=== PATIENT | male | born 1970 | race Caucasian/White ===

== ENCOUNTER 2019-07-07 11:19 | Inpatient (IN) | payer OTHER ==
--- NOTE | 2019-07-07 12:38 | Event Note ---
ED Screening Note ED Screening Note: pt presents for headache chest pain generalized weakness dizziness like the room is spinning three weeks ago occasional vomiting no diarrhea no sob PMHx none no daily meds no allergies to meds This initial assessment/diagnostic orders/clinical plan/treatment(s) is/are subject to change based on patients health status, clinical progression and re- assessment by fellow clinical providers in the ED. Further treatment and workup at subsequent clinical providers discretion. Patient/guardian urged not to elope from the ED as their condition may be serious if not clinically assessed and managed. Initial orders include: tana quigley
--- NOTE | 2019-07-07 14:14 | XRay Report ---
CHEST 2 VIEWS INDICATION: CP. COMPARISON: 08/18/2015 FINDINGS: Support devices: None. Heart: Within normal limits. Lungs/Pleura: No acute air space or interstitial disease. No significant pleural effusion. IMPRESSION: No acute findings. Signer Name: Marco Antonio Ceballos MD Signed: 07/07/2019 2:10 PM Workstation Name: [id number]
[2019-07-07 14:59] LABS: Mean Corpuscular HGB Conc 35 % (32-34); Mean Corpuscular Volume 97 fl (84-94); Platelet Count 139 K/mm3 (140-440); Red Blood Count 1.34 M/mm3 (3.65-5.03)
[2019-07-07 15:03] LABS: INR 1.11 (0.87-1.13)
[2019-07-07 15:04] LABS: Partial Thromboplastin Time 22.6 Sec. (24.2-36.6)
[2019-07-07 15:12] LABS: Alanine Aminotransferase 38 units/L (7-56); Albumin 4.4 g/dL (3.9-5); BUN/Creatinine Ratio 20; Blood Urea Nitrogen 14 mg/dL (9-20); Calcium 9.7 mg/dL (8.4-10.2); Hemolysis Index 2
[2019-07-07 15:19] LABS: Hemoglobin 4.5 gm/dl (11.8-15.2); Red Cell Distribution Width 33.9 % (13.2-15.2)
[2019-07-07] MEDS ORDERED: SODIUM CHLORIDE 0.9% 1000 ML 1,000 ML IV ONE (15:39)
[2019-07-07] MEDS ORDERED: SODIUM CHLORIDE 0.9% 500 ML 500 ML IV ONE (15:40)
[2019-07-07] MEDS ORDERED: ONDANSETRON 4 MG/2 ML INJ IV ONE (15:40)
[2019-07-07 15:58] LABS: Eosinophils % (Manual) 0 % (0.0-4.3); Hypochromasia 1+; Total Cells Counted 100
[2019-07-07 15:59] LABS: Target Cells 1+; Tear Drop Cells 1+
[2019-07-07 16:00] LABS: Platelet Estimate Consistent w Auto; Spherocytes Few
--- NOTE | 2019-07-07 16:31 | Emergency Department Report ---
ED Dizziness HPI - General Chief Complaint: Dizziness Stated Complaint: HEADACHE/DIZZY/STOMACH PAIN Time Seen by Provider: 07/07/19 12:36 Source: patient Mode of arrival: Ambulatory Limitations: No Limitations - History of Present Illness Initial Comments: 49-year-old [place] male without any known past medical or surgical history presents to the hospital complaining of lightheadedness, vomiting, and pain. Patient states he's had a global headache daily since April. The last 3 weeks he's had intermittent vomiting primarily with meals but is able to tolerate liquids. Patient endorses weight loss during this period. He also has any shortness of breath, chest pain, or weakness, focal numbness, blurry vision, and abdominal cramps. Patient denies fever, melena, hematochezia, hematemesis, alcohol abuse, or recent travel. Patient does speak British however his primary language is Chadian and Creole. He denies a past medical history of anemia or requiring a blood transfusion in the past. - Related Data Home Medications Medication Instructions Recorded Confirmed Last Taken No Known Home Medications [No 07/07/19 07/07/19 Unknown Reported Home Medications] Allergies Allergy/AdvReac Type Severity Reaction Status Date / Time No Known Allergies Allergy Unverified 08/18/15 16:13 ED Review of Systems ROS: Stated complaint: HEADACHE/DIZZY/STOMACH PAIN Other details as noted in HPI Comment: All other systems reviewed and negative ED Past Medical Hx - Past Medical History Previous Medical History?: No - Surgical History Past Surgical History?: No - Social History Smoking Status: Former Smoker Substance Use Type: None - Medications Home Medications: Home Medications Medication Instructions Recorded Confirmed Last Taken Type No Known Home Medications [No 07/07/19 07/07/19 Unknown History Reported Home Medications] ED Physical Exam - General Limitations: No Limitations - Other Other exam information: General: No limitations, patient is alert in no acute distress Head exam: Atraumatic, normocephalic Eyes exam: Normal appearance, extraocular movements intact, pupils equal and reactive to light ENT: Moist mucous membrane Neck exam: Normal inspection, full range of motion Respiratory exam: Clear to auscultation bilateral, no wheezes, rales, crackles Cardiovascular: Regular rate and rhythm Abdomen: Soft, nondistended, and nontender, with normal bowel sounds, no rebound, or guarding Rectal: Guaiac-negative brown stool Extremity: No deformity Back: Normal Inspection, no CVA tenderness Neurologic: Alert, oriented x3, speech clear, no gross motor or sensory deficit, finger nose finger function intact Psychiatric: Normal mood, affect Skin: No rash ED Course Vital Signs 07/07/19 07/07/19 07/07/19 15:19 19:20 19:40 Temperature 97.6 F 98.5 F 98.5 F Pulse Rate 110 H 101 H 105 H Respiratory 20 16 16 Rate Blood Pressure 155/74 Blood Pressure 150/75 145/68 [Left] O2 Sat by Pulse 100 98 99 Oximetry 07/07/19 07/07/19 07/07/19 19:55 20:10 20:40 Temperature 98.2 F 98.5 F 98.5 F Pulse Rate 91 H 96 H 92 H Respiratory 16 18 18 Rate Blood Pressure 136/68 136/76 122/70 Blood Pressure [Left] O2 Sat by Pulse 98 98 96 Oximetry ED Medical Decision Making - Lab Data Result diagrams: 07/07/19 16:00 07/07/19 14:25 Lab Results 07/07/19 07/07/19 07/07/19 Range/Units 14:25 14:25 14:25 WBC 8.9 (4.5-11.0) K/mm3 RBC 1.34 L (3.65-5.03) M/mm3 Hgb 4.5 L* (11.8-15.2) gm/dl Hct 13.0 L* (35.5-45.6) % MCV 97 H (84-94) fl MCH 34 H (28-32) pg MCHC 35 H (32-34) % RDW 33.9 H (13.2-15.2) % Plt Count 139 L (140-440) K/mm3 Add Manual Diff Complete Total Counted 100 Seg Neuts % (Manual) 55.0 (40.0-70.0) % Band Neutrophils % 0 % Lymphocytes % (Manual) 43.0 H (13.4-35.0) % Reactive Lymphs % (Man) 0 % Monocytes % (Manual) 1.0 (0.0-7.3) % Eosinophils % (Manual) 0 (0.0-4.3) % Basophils % (Manual) 1.0 (0.0-1.8) % Metamyelocytes % 0 % Myelocytes % 0 % Promyelocytes % 0 % Blast Cells % 0 % Nucleated RBC % 1.0 H (0.0-0.9) % Seg Neutrophils # Man 4.9 (1.8-7.7) K/mm3 Band Neutrophils # 0.0 K/mm3 Lymphocytes # (Manual) 3.8 (1.2-5.4) K/mm3 Abs React Lymphs (Man) 0.0 K/mm3 Monocytes # (Manual) 0.1 (0.0-0.8) K/mm3 Eosinophils # (Manual) 0.0 (0.0-0.4) K/mm3 Basophils # (Manual) 0.1 (0.0-0.1) K/mm3 Metamyelocytes # 0.0 K/mm3 Myelocytes # 0.0 K/mm3 Promyelocytes # 0.0 K/mm3 Blast Cells # 0.0 K/mm3 WBC Morphology Not Reportable Hypersegmented Neuts Not Reportable Hyposegmented Neuts Not Reportable Hypogranular Neuts Not Reportable Smudge Cells Not Reportable Toxic Granulation Not Reportable Toxic Vacuolation Not Reportable Dohle Bodies Not Reportable Pelger-Huet Anomaly Not Reportable Any Rods Not Reportable Platelet Estimate Consistent w auto Clumped Platelets Not Reportable Plt Clumps, EDTA Not Reportable Large Platelets Not Reportable Giant Platelets Not Reportable Platelet Satelliting Not Reportable Plt Morphology Comment Not Reportable RBC Morphology Not Reportable Dimorphic RBCs Not Reportable Polychromasia Few Hypochromasia 1+ Poikilocytosis Not Reportable Anisocytosis Not Reportable Microcytosis Not Reportable Macrocytosis Not Reportable Spherocytes Few Pappenheimer Bodies Not Reportable Sickle Cells Not Reportable Target Cells 1+ Tear Drop Cells 1+ Ovalocytes Not Reportable Helmet Cells Not Reportable Melton-Pescadero Bodies Not Reportable Gurnee Rings Not Reportable Solon Cells Not Reportable Bite Cells Not Reportable Crenated Cell Not Reportable Elliptocytes 1+ Acanthocytes (Spur) Not Reportable Rouleaux Not Reportable Hemoglobin C Crystals Not Reportable Schistocytes Not Reportable Malaria parasites Not Reportable Henri Bodies Not Reportable Hem Pathologist Commnt No PT 14.4 (12.2-14.9) Sec. INR 1.11 (0.87-1.13) APTT 22.6 L (24.2-36.6) Sec. Sodium 140 (137-145) mmol/L Potassium 4.0 (3.6-5.0) mmol/L Chloride 99.9 (98-107) mmol/L Carbon Dioxide 25 (22-30) mmol/L Anion Gap 19 mmol/L BUN 14 (9-20) mg/dL Creatinine 0.7 L (0.8-1.5) mg/dL Estimated GFR > 60 ml/min BUN/Creatinine Ratio 20 % Glucose 110 H (75-100) mg/dL Calcium 9.7 (8.4-10.2) mg/dL Phosphorus 4.40 (2.5-4.5) mg/dL Magnesium 1.80 (1.7-2.3) mg/dL Total Bilirubin 1.30 H (0.1-1.2) mg/dL AST 76 H (5-40) units/L ALT 38 (7-56) units/L Alkaline Phosphatase 62 (35-129) units/L Troponin T < 0.010 (0.00-0.029) ng/mL Total Protein 7.4 (6.3-8.2) g/dL Albumin 4.4 (3.9-5) g/dL Albumin/Globulin Ratio 1.5 % Lipase (13-60) units/L TSH (0.270-4.200) mlU/mL Blood Type Antibody Screen Crossmatch 07/07/19 07/07/19 07/07/19 Range/Units 14:25 16:00 16:00 WBC 8.5 (4.5-11.0) K/mm3 RBC 1.41 L (3.65-5.03) M/mm3 Hgb 4.7 L* (11.8-15.2) gm/dl Hct 13.9 L* (35.5-45.6) % MCV 98 H (84-94) fl MCH 33 H (28-32) pg MCHC 34 (32-34) % RDW 34.6 H (13.2-15.2) % Plt Count 131 L (140-440) K/mm3 Add Manual Diff Complete Total Counted 100 Seg Neuts % (Manual) 43.0 (40.0-70.0) % Band Neutrophils % 0 % Lymphocytes % (Manual) 53.0 H (13.4-35.0) % Reactive Lymphs % (Man) 0 % Monocytes % (Manual) 3.0 (0.0-7.3) % Eosinophils % (Manual) 1.0 (0.0-4.3) % Basophils % (Manual) 0 (0.0-1.8) % Metamyelocytes % 0 % Myelocytes % 0 % Promyelocytes % 0 % Blast Cells % 0 % Nucleated RBC % Not Reportable (0.0-0.9) % Seg Neutrophils # Man 3.7 (1.8-7.7) K/mm3 Band Neutrophils # 0.0 K/mm3 Lymphocytes # (Manual) 4.5 (1.2-5.4) K/mm3 Abs React Lymphs (Man) 0.0 K/mm3 Monocytes # (Manual) 0.3 (0.0-0.8) K/mm3 Eosinophils # (Manual) 0.1 (0.0-0.4) K/mm3 Basophils # (Manual) 0.0 (0.0-0.1) K/mm3 Metamyelocytes # 0.0 K/mm3 Myelocytes # 0.0 K/mm3 Promyelocytes # 0.0 K/mm3 Blast Cells # 0.0 K/mm3 WBC Morphology Not Reportable Hypersegmented Neuts Not Reportable Hyposegmented Neuts Not Reportable Hypogranular Neuts Not Reportable Smudge Cells Not Reportable Toxic Granulation Not Reportable Toxic Vacuolation Not Reportable Dohle Bodies Not Reportable Pelger-Huet Anomaly Not Reportable Any Rods Not Reportable Platelet Estimate Not Reportable Clumped Platelets Not Reportable Plt Clumps, EDTA Not Reportable Large Platelets Not Reportable Giant Platelets Not Reportable Platelet Satelliting Not Reportable Plt Morphology Comment Not Reportable RBC Morphology Not Reportable Dimorphic RBCs Not Reportable Polychromasia 1+ Hypochromasia Not Reportable Poikilocytosis Not Reportable Anisocytosis 1+ Microcytosis Not Reportable Macrocytosis Not Reportable Spherocytes 1+ Pappenheimer Bodies Not Reportable Sickle Cells Not Reportable Target Cells 1+ Tear Drop Cells 1+ Ovalocytes Not Reportable Helmet Cells Not Reportable Melton-[place] Bodies Not Reportable Gurnee Rings Not Reportable Lillie Cells Not Reportable Bite Cells Not Reportable Crenated Cell Not Reportable Elliptocytes 1+ Acanthocytes (Spur) Not Reportable Rouleaux Not Reportable Hemoglobin C Crystals Not Reportable Schistocytes Not Reportable Malaria parasites Not Reportable Henri Bodies Not Reportable Hem Pathologist Commnt No PT (12.2-14.9) Sec. INR (0.87-1.13) APTT (24.2-36.6) Sec. Sodium (137-145) mmol/L Potassium (3.6-5.0) mmol/L Chloride (98-107) mmol/L Carbon Dioxide (22-30) mmol/L Anion Gap mmol/L BUN (9-20) mg/dL Creatinine (0.8-1.5) mg/dL Estimated GFR ml/min BUN/Creatinine Ratio % Glucose (75-100) mg/dL Calcium (8.4-10.2) mg/dL Phosphorus (2.5-4.5) mg/dL Magnesium (1.7-2.3) mg/dL Total Bilirubin (0.1-1.2) mg/dL AST (5-40) units/L ALT (7-56) units/L Alkaline Phosphatase (35-129) units/L Troponin T < 0.010 (0.00-0.029) ng/mL Total Protein (6.3-8.2) g/dL Albumin (3.9-5) g/dL Albumin/Globulin Ratio % Lipase (13-60) units/L TSH 1.680 (0.270-4.200) mlU/mL Blood Type Antibody Screen Crossmatch 07/07/19 07/07/19 07/07/19 Range/Units 16:00 16:00 16:00 WBC (4.5-11.0) K/mm3 RBC (3.65-5.03) M/mm3 Hgb (11.8-15.2) gm/dl Hct (35.5-45.6) % MCV (84-94) fl MCH (28-32) pg MCHC (32-34) % RDW (13.2-15.2) % Plt Count (140-440) K/mm3 Add Manual Diff Total Counted Seg Neuts % (Manual) (40.0-70.0) % Band Neutrophils % % Lymphocytes % (Manual) (13.4-35.0) % Reactive Lymphs % (Man) % Monocytes % (Manual) (0.0-7.3) % Eosinophils % (Manual) (0.0-4.3) % Basophils % (Manual) (0.0-1.8) % Metamyelocytes % % Myelocytes % % Promyelocytes % % Blast Cells % % Nucleated RBC % (0.0-0.9) % Seg Neutrophils # Man (1.8-7.7) K/mm3 Band Neutrophils # K/mm3 Lymphocytes # (Manual) (1.2-5.4) K/mm3 Abs React Lymphs (Man) K/mm3 Monocytes # (Manual) (0.0-0.8) K/mm3 Eosinophils # (Manual) (0.0-0.4) K/mm3 Basophils # (Manual) (0.0-0.1) K/mm3 Metamyelocytes # K/mm3 Myelocytes # K/mm3 Promyelocytes # K/mm3 Blast Cells # K/mm3 WBC Morphology Hypersegmented Neuts Hyposegmented Neuts Hypogranular Neuts Smudge Cells Toxic Granulation Toxic Vacuolation Dohle Bodies Pelger-Huet Anomaly Any Rods Platelet Estimate Clumped Platelets Plt Clumps, EDTA Large Platelets Giant Platelets Platelet Satelliting Plt Morphology Comment RBC Morphology Dimorphic RBCs Polychromasia Hypochromasia Poikilocytosis Anisocytosis Microcytosis Macrocytosis Spherocytes Pappenheimer Bodies Sickle Cells Target Cells Tear Drop Cells Ovalocytes Helmet Cells Melton-Pescadero Bodies Gurnee Rings Lillie Cells Bite Cells Crenated Cell Elliptocytes Acanthocytes (Spur) Rouleaux Hemoglobin C Crystals Schistocytes Malaria parasites Henri Bodies Hem Pathologist Commnt PT 13.9 (12.2-14.9) Sec. INR 1.06 (0.87-1.13) APTT 25.9 (24.2-36.6) Sec. Sodium (137-145) mmol/L Potassium (3.6-5.0) mmol/L Chloride (98-107) mmol/L Carbon Dioxide (22-30) mmol/L Anion Gap mmol/L BUN (9-20) mg/dL Creatinine (0.8-1.5) mg/dL Estimated GFR ml/min BUN/Creatinine Ratio % Glucose (75-100) mg/dL Calcium (8.4-10.2) mg/dL Phosphorus (2.5-4.5) mg/dL Magnesium 1.90 (1.7-2.3) mg/dL Total Bilirubin (0.1-1.2) mg/dL AST (5-40) units/L ALT (7-56) units/L Alkaline Phosphatase (35-129) units/L Troponin T (0.00-0.029) ng/mL Total Protein (6.3-8.2) g/dL Albumin (3.9-5) g/dL Albumin/Globulin Ratio % Lipase 10 L (13-60) units/L TSH (0.270-4.200) mlU/mL Blood Type O POSITIVE Antibody Screen Negative Crossmatch See Detail - EKG Data -: EKG Interpreted by Pa EKG shows normal: sinus rhythm, ST-T waves (no stemi or T-wave inversion) Rate: normal (83) - Radiology Data Radiology results: report reviewed CHEST 2 VIEWS INDICATION: CP. COMPARISON: 08/18/2015 FINDINGS: Support devices: None. Heart: Within normal limits. Lungs/Pleura: No acute air space or interstitial disease. No significant pleural effusion. IMPRESSION: No acute finding NONENHANCED CT SCAN OF THE HEAD: INDICATION / CLINICAL INFORMATION: 49 years Male; recinos x 3 months, n/v x 3 weeks. TECHNIQUE: Routine CT head without contrast. All CT scans at this location are performed using CT dose reduction for ALARA by means of automated exposure control. COMPARISON: None. FINDINGS: BRAIN / INTRACRANIAL CONTENTS: No acute hemorrhage, mass effect, midline shift, hydrocephalus, or acute, large territorial infarct. Mild volume loss is seen in the cerebellar vermis and cerebellar hemispheres. Cerebral hemispheres are normal. CRANIOCERVICAL JUNCTION: No significant abnormality. ORBITS: No significant abnormality of visualized orbits. SINUSES / MASTOIDS: Left maxillary sinus is opacified with thickened bony marcelino suggesting chronic inflammatory changes. ADDITIONAL FINDINGS: None. IMPRESSION: Normal CT scan of the brain Opacified left maxillary sinus with thickened bony marcelino suggesting chronic inflammatory change CT abdomen pelvis w con INDICATION / CLINICAL INFORMATION: vomiting x 3 weeks, weight loss anemia. TECHNIQUE: All CT scans at this location are performed using CT dose reduction for ALARA by means of automated exposure control. COMPARISON: None available. FINDINGS: Limited lower thoracic images are negative. ABDOMEN: The gallbladder, liver, spleen, pancreas and adrenal glands are normal. No urinary calculi or hydronephrosis. The kidneys are normal. No mesenteric or retroperitoneal adenopathy. The small bowel is nondilated. Pelvis: No fluid collections are seen in the pelvis. No acute inflammatory findings. Skeletal structures are normal. IMPRESSION: 1. No acute findings. - Medical Decision Making Patient has severe symptomatic anemia of unknown cause. Guaiac-negative. Reports no previous history of anemia. CT head, chest x-ray, CT and pelvis with IV contrast did not show any acute abnormalities. Cause of patient's persistent intermittent vomiting the last 3 weeks and weight loss unknown at t his time as well. Patient will be admitted to the hospitalist service for completion of the blood transfusion and further evaluation. 3 units of PRBCs ordered in the ED. - Differential Diagnosis anemia, arrhythmia, cancer, infection Critical Care Time: No Critical care attestation.: If time is entered above; I have spent that time in minutes in the direct care of this critically ill patient, excluding procedure time. ED Disposition Clinical Impression: Severe anemia, Nausea and vomiting, Headache, Lightheadedness Disposition: [id number] OP ADMIT IP TO THIS HOSP Is pt being admited?: Yes Condition: Stable Time of Disposition: 19:55 (Dr Raphael/hosp)
[2019-07-07 16:47] LABS: Mean Corpuscular HGB Conc 34 % (32-34); Mean Corpuscular Volume 98 fl (84-94); Platelet Count 131 K/mm3 (140-440); Red Blood Count 1.41 M/mm3 (3.65-5.03)
[2019-07-07 17:02] LABS: INR 1.06 (0.87-1.13); Partial Thromboplastin Time 25.9 Sec. (24.2-36.6)
[2019-07-07 17:47] LABS: Hemoglobin 4.7 gm/dl (11.8-15.2); Red Cell Distribution Width 34.6 % (13.2-15.2)
[2019-07-07 17:48] LABS: Hematocrit 13.9 % (35.5-45.6)
[2019-07-07 18:35] LABS: Anisocytosis 1+; Basophils % (Manual) 0 % (0.0-1.8); Spherocytes 1+; Target Cells 1+; Tear Drop Cells 1+; Total Cells Counted 100
--- NOTE | 2019-07-07 18:50 | Cat Scan Report ---
CT abdomen pelvis w con INDICATION / CLINICAL INFORMATION: vomiting x 3 weeks, weight loss anemia. TECHNIQUE: All CT scans at this location are performed using CT dose reduction for ALARA by means of automated e xposure control. COMPARISON: None available. FINDINGS: Limited lower thoracic images are negative. ABDOMEN: The gallbladder, liver, spleen, pancreas and adrenal glands are normal. No urinary calculi or hydronephrosis. The kidneys are normal. No mesenteric or retroperitoneal adenopathy. The small bowel is nondilated. Pelvis: No fluid collections are seen in the pelvis. No acute inflammatory findings. Skeletal structures are normal. IMPRESSION: 1. No acute findings. Signer Name: Maurice Jones MD Signed: 07/07/2019 6:46 PM Workstation Name: [id number]
[2019-07-07] MEDS ORDERED: SODIUM CHLORIDE 0.9% 500 ML 500 ML ONE (18:57)
[2019-07-07] MEDS ORDERED: SODIUM CHLORIDE 0.9% 1000 ML 1,000 ML ONE ×2 (19:11→19:38)
--- NOTE | 2019-07-07 19:26 | Cat Scan Report ---
NONENHANCED CT SCAN OF THE HEAD: INDICATION / CLINICAL INFORMATION: 49 years Male; recinos x 3 months, n/v x 3 weeks. TECHNIQUE: Routine CT head without contrast. All CT scans at this location are performed using CT dos e reduction for ALARA by means of automated exposure control. COMPARISON: None. FINDINGS: BRAIN / INTRACRANIAL CONTENTS: No acute hemorrhage, mass effect, midline shift, hydrocephalus, or acu te, large territorial infarct. Mild volume loss is seen in the cerebellar vermis and cerebellar hemis pheres. Cerebral hemispheres are normal. CRANIOCERVICAL JUNCTION: No significant abnormality. ORBITS: No significant abnormality of visualized orbits. SINUSES / MASTOIDS: Left maxillary sinus is opacified with thickened bony marcelino suggesting chronic in flammatory changes. ADDITIONAL FINDINGS: None. IMPRESSION: Normal CT scan of the brain Opacified left maxillary sinus with thickened bony marcelino suggesting chronic inflammatory changes Signer Name: Jonathan Edouard MD Signed: 07/07/2019 7:22 PM Workstation Name: [id number]
--- NOTE | 2019-07-07 20:05 | History and Physical Report ---
History of Present Illness Date of examination: 07/07/19 Date of admission: 07/07/19 Chief complaint: "My head hurts and I do not feel good" History of present illness: Patient is 49-year-old male patient with no prior medical history who presents to ER with complaints of headache x2 months, and chest pain x3 weeks. Patient reports that his headaches are accompanied by bouts of dizziness and weakness and these symptoms consistently only occur whilst at work with usual activity. His chest pain occurs intermittently with exertion, sometimes precipitated with nausea and or vomiting, it is without radiation and relieved by rest. He reports taking OTC Excedrin for his headache but have not sought additional care or have a PCP. Past History Past Medical History: No medical history Past Surgical History: No surgical history Social history: smoking (x 15 years) Family history: diabetes, hypertension Medications and Allergies Allergies Allergy/AdvReac Type Severity Reaction Status Date / Time No Known Allergies Allergy Unverified 08/18/15 16:13 Home Medications Medication Instructions Recorded Confirmed Last Taken Type No Known Home Medications [No 07/07/19 07/07/19 Unknown History Reported Home Medications] Review of Systems All systems: negative Constitutional: chills, fatigue, weakness Cardiovascular: lightheadedness Neurological: weakness Exam - Physical Exam Narrative exam: - Physical Exam Narrative exam: General appearance: Present: No distress noted - EENT Eyes: Present: PERRL ENT: hearing intact, clear oral mucosa - Neck Neck: Present: supple, normal ROM - Respiratory Respiratory effort: normal Respiratory: bilateral: Clear to auscultation - Cardiovascular Heart rate:98 Heart Sounds: Present: S1 & S2. Absent: rub, click - Extremities Extremities: pulses symmetrical, No edema Peripheral Pulses: within normal limits - Abdominal General gastrointestinal: Present: , non-distended, normal bowel sounds genitourinary: Present: normal - Integumentary Integumentary: Present: clear, warm, dry - Musculoskeletal Musculoskeletal: gait normal, strength equal bilaterally - Psychiatric Psychiatric: appropriate mood/affect, intact judgment & insight - Neurologic Neurologic: CNII-XII intact, moves all extremities - Constitutional Vitals: Temp Pulse Resp BP Pulse Ox 98.5 F 105 H 16 155/74 99 07/07/19 19:40 07/07/19 19:40 07/07/19 19:40 07/07/19 19:40 07/07/19 19:40 Results - Labs CBC & Chem 7: 07/07/19 16:00 07/07/19 14:25 Labs: Laboratory Last Values WBC 8.5 K/mm3 (4.5-11.0) 07/07/19 16:00 RBC 1.41 M/mm3 (3.65-5.03) L 07/07/19 16:00 Hgb 4.7 gm/dl (11.8-15.2) L* 07/07/19 16:00 Hct 13.9 % (35.5-45.6) L* 07/07/19 16:00 MCV 98 fl (84-94) H 07/07/19 16:00 MCH 33 pg (28-32) H 07/07/19 16:00 MCHC 34 % (32-34) 07/07/19 16:00 RDW 34.6 % (13.2-15.2) H 07/07/19 16:00 Plt Count 131 K/mm3 (140-440) L 07/07/19 16:00 Add Manual Diff Complete 07/07/19 16:00 Total Counted 100 07/07/19 16:00 Seg Neuts % (Manual) 43.0 % (40.0-70.0) 07/07/19 16:00 Band Neutrophils % 0 % 07/07/19 16:00 Lymphocytes % (Manual) 53.0 % (13.4-35.0) H 07/07/19 16:00 Reactive Lymphs % (Man) 0 % 07/07/19 16:00 Monocytes % (Manual) 3.0 % (0.0-7.3) 07/07/19 16:00 Eosinophils % (Manual) 1.0 % (0.0-4.3) 07/07/19 16:00 Basophils % (Manual) 0 % (0.0-1.8) 07/07/19 16:00 Metamyelocytes % 0 % 07/07/19 16:00 Myelocytes % 0 % 07/07/19 16:00 Promyelocytes % 0 % 07/07/19 16:00 Blast Cells % 0 % 07/07/19 16:00 Nucleated RBC % Not Reportable 07/07/19 16:00 Seg Neutrophils # Man 3.7 K/mm3 (1.8-7.7) 07/07/19 16:00 Band Neutrophils # 0.0 K/mm3 07/07/19 16:00 Lymphocytes # (Manual) 4.5 K/mm3 (1.2-5.4) 07/07/19 16:00 Abs React Lymphs (Man) 0.0 K/mm3 07/07/19 16:00 Monocytes # (Manual) 0.3 K/mm3 (0.0-0.8) 07/07/19 16:00 Eosinophils # (Manual) 0.1 K/mm3 (0.0-0.4) 07/07/19 16:00 Basophils # (Manual) 0.0 K/mm3 (0.0-0.1) 07/07/19 16:00 Metamyelocytes # 0.0 K/mm3 07/07/19 16:00 Myelocytes # 0.0 K/mm3 07/07/19 16:00 Promyelocytes # 0.0 K/mm3 07/07/19 16:00 Blast Cells # 0.0 K/mm3 07/07/19 16:00 WBC Morphology Not Reportable 07/07/19 16:00 Hypersegmented Neuts Not Reportable 07/07/19 16:00 Hyposegmented Neuts Not Reportable 07/07/19 16:00 Hypogranular Neuts Not Reportable 07/07/19 16:00 Smudge Cells Not Reportable 07/07/19 16:00 Toxic Granulation Not Reportable 07/07/19 16:00 Toxic Vacuolation Not Reportable 07/07/19 16:00 Dohle Bodies Not Reportable 07/07/19 16:00 Pelger-Huet Anomaly Not Reportable 07/07/19 16:00 Any Rods Not Reportable 07/07/19 16:00 Platelet Estimate Not Reportable 07/07/19 16:00 Clumped Platelets Not Reportable 07/07/19 16:00 Plt Clumps, EDTA Not Reportable 07/07/19 16:00 Large Platelets Not Reportable 07/07/19 16:00 Giant Platelets Not Reportable 07/07/19 16:00 Platelet Satelliting Not Reportable 07/07/19 16:00 Plt Morphology Comment Not Reportable 07/07/19 16:00 RBC Morphology Not Reportable 07/07/19 16:00 Dimorphic RBCs Not Reportable 07/07/19 16:00 Polychromasia 1+ 07/07/19 16:00 Hypochromasia Not Reportable 07/07/19 16:00 Poikilocytosis Not Reportable 07/07/19 16:00 Anisocytosis 1+ 07/07/19 16:00 Microcytosis Not Reportable 07/07/19 16:00 Macrocytosis Not Reportable 07/07/19 16:00 Spherocytes 1+ 07/07/19 16:00 Pappenheimer Bodies Not Reportable 07/07/19 16:00 Sickle Cells Not Reportable 07/07/19 16:00 Target Cells 1+ 07/07/19 16:00 Tear Drop Cells 1+ 07/07/19 16:00 Ovalocytes Not Reportable 07/07/19 16:00 Helmet Cells Not Reportable 07/07/19 16:00 [place] Bodies Not Reportable 07/07/19 16:00 [place] Rings Not Reportable 07/07/19 16:00 [place] Cells Not Reportable 07/07/19 16:00 Bite Cells Not Reportable 07/07/19 16:00 Crenated Cell Not Reportable 07/07/19 16:00 Elliptocytes 1+ 07/07/19 16:00 Acanthocytes (Spur) Not Reportable 07/07/19 16:00 Rouleaux Not Reportable 07/07/19 16:00 Hemoglobin C Crystals Not Reportable 07/07/19 16:00 Schistocytes Not Reportable 07/07/19 16:00 Malaria parasites Not Reportable 07/07/19 16:00 Henri Bodies Not Reportable 07/07/19 16:00 Hem Pathologist Commnt No 07/07/19 16:00 PT 13.9 Sec. (12.2-14.9) 07/07/19 16:00 INR 1.06 (0.87-1.13) 07/07/19 16:00 APTT 25.9 Sec. (24.2-36.6) 07/07/19 16:00 Sodium 140 mmol/L (137-145) 07/07/19 14:25 Potassium 4.0 mmol/L (3.6-5.0) 07/07/19 14:25 Chloride 99.9 mmol/L (98-107) 07/07/19 14:25 Carbon Dioxide 25 mmol/L (22-30) 07/07/19 14:25 Anion Gap 19 mmol/L 07/07/19 14:25 BUN 14 mg/dL (9-20) 07/07/19 14:25 Creatinine 0.7 mg/dL (0.8-1.5) L 07/07/19 14:25 Estimated GFR > 60 ml/min 07/07/19 14:25 BUN/Creatinine Ratio 20 % 07/07/19 14:25 Glucose 110 mg/dL (75-100) H 07/07/19 14:25 Calcium 9.7 mg/dL (8.4-10.2) 07/07/19 14:25 Phosphorus 4.40 mg/dL (2.5-4.5) 07/07/19 14:25 Magnesium 1.90 mg/dL (1.7-2.3) 07/07/19 16:00 Total Bilirubin 1.30 mg/dL (0.1-1.2) H 07/07/19 14:25 AST 76 units/L (5-40) H 07/07/19 14:25 ALT 38 units/L (7-56) 07/07/19 14:25 Alkaline Phosphatase 62 units/L (35-129) 07/07/19 14:25 Troponin T < 0.010 ng/mL (0.00-0.029) 07/07/19 16:00 Total Protein 7.4 g/dL (6.3-8.2) 07/07/19 14:25 Albumin 4.4 g/dL (3.9-5) 07/07/19 14:25 Albumin/Globulin Ratio 1.5 % 07/07/19 14:25 Lipase 10 units/L (13-60) L 07/07/19 16:00 TSH 1.680 mlU/mL (0.270-4.200) 07/07/19 14:25 Blood Type O POSITIVE 07/07/19 16:00 Antibody Screen Negative 07/07/19 16:00 Crossmatch See Detail 07/07/19 16:00 - Imaging and Cardiology EKG: report reviewed (Sinus rhythm) Imaging and Cardiology: CT abdomen pelvis w con INDICATION / CLINICAL INFORMATION: vomiting x 3 weeks, weight loss anemia. TECHNIQUE: All CT scans at this location are performed using CT dose reduction for ALARA by means of automated exposure control. COMPARISON: None available. FINDINGS: Limited lower thoracic images are negative. ABDOMEN: The gallbladder, liver, spleen, pancreas and adrenal glands are normal. No urinary calculi or hydronephrosis. The kidneys are normal. No mesenteric or retroperitoneal adenopathy. The small bowel is nondilated. Pelvis: No fluid collections are seen in the pelvis. No acute inflammatory findings. Skeletal structures are normal. IMPRESSION: 1. No acute findings. CT SCAN OF THE HEAD: INDICATION / CLINICAL INFORMATION: 49 years Male; recinos x 3 months, n/v x 3 weeks. TECHNIQUE: Routine CT head without contrast. All CT scans at this location are performed using CT dose reduction for ALARA by means of automated exposure contr ol. COMPARISON: None. FINDINGS: BRAIN / INTRACRANIAL CONTENTS: No acute hemorrhage, mass effect, m idline shift, hydrocephalus, or acute, large territorial infarct. Mild volume loss is seen in the cerebellar vermis and cerebellar hemispheres. Cerebral hemispheres are normal. CRANIOCERVICAL JUNCTION: No significant abnormality. ORBITS: No significant abnormality of visualized orbits. SINUSES / MASTOIDS: Left maxillary sinus is opacified with thickened bony marcelino suggesting chronic inflammatory changes. ADDITIONAL FINDINGS: None. IMPRESSION: Normal CT scan of the brain Opacified left maxillary sinus with thickened bony marcelino suggesting chronic inflammatory changes CHEST 2 VIEWS INDICATION: CP. COMPARISON: 08/18/2015 FINDINGS: Support devices: None. Heart: Within normal limits. Lungs/Pleura: No acute air space or interstitial disease. No significant pleural effusion. IMPRESSION: No acute finding Assessment and Plan Assessment and plan: Anemia -Severe -Hb: 4.7g/dl -3 units transfused in the ER -Monitor labs -Heme consult Headache -x 2 months -Accompanied c/ dizziness -CT head negative -PRN pain med Nausea/ vomiting -Anti-emetic prn -IV fluids -Supportive care Chest pain -x 3 weeks - will admit to telemetry bed - monitor with serial CE and EKG - will place on Aspirin, statin - as needed SL NTG and iv morphin for pain - Monitor BP, DVT prophylaxis -SCDs bilateral extremities -Patient ambulatory Advance Directives: No VTE prophylaxis?: Mechanical Plan of care discussed with patient/family: Yes
[2019-07-07] MEDS ORDERED: ACETAMINOPHEN 325 MG TAB PO PRN (21:35)
[2019-07-07] MEDS ORDERED: ONDANSETRON 4 MG/2 ML INJ IV PRN (21:35)
[2019-07-07] MEDS ORDERED: MORPHINE 2 MG/1 ML INJ IV PRN (21:35)
[2019-07-07] MEDS ORDERED: hydrALAZINE 20 MG/1 ML INJ IV PRN (21:37)
[2019-07-08] MEDS: FAMOTIDINE 20 MG/2 ML INJ IV SCH ×2 (01:27→09:37)
[2019-07-08 01:46] LABS: Iron 151 ug/dL (49-181)
[2019-07-08 02:06] LABS: Total Iron Binding Capacity 128 mcg/dL (250-450)
[2019-07-08] MEDS ORDERED: SODIUM CHLORIDE 0.9% 1000 ML 1,000 ML IV ONE (04:59)
[2019-07-08 07:29] LABS: Hematocrit 22.2 % (35.5-45.6); Hemoglobin 7.8 gm/dl (11.8-15.2); Mean Corpuscular HGB Conc 35 % (32-34); Mean Corpuscular Volume 96 fl (84-94); Platelet Count 104 K/mm3 (140-440); Red Cell Distribution Width 17.6 % (13.2-15.2)
[2019-07-08 07:42] LABS: BUN/Creatinine Ratio 14; Blood Urea Nitrogen 11 mg/dL (9-20); Calcium 9.1 mg/dL (8.4-10.2); Hemolysis Index 8
--- NOTE | 2019-07-08 07:58 | Progress Note ---
Assessment and Plan Assessment and plan: 49-year-old [place] male without any known past medical or surgical history presents to the hospital complaining of lightheadedness, vomiting, and pain. Patient states he's had a global headache daily since April. The last 3 weeks he's had intermittent vomiting primarily with meals but is able to t olerate liquids. Patient endorses weight loss during this period. He also has any shortness of breath, chest pain, or weakness, focal numbness, blurry vision, and abdominal cramps. Patient denies fever, melena, hematochezia, hematemesis, alcohol abuse, or recent travel. Patient does speak [place] however his primary language is Polish and Creole. He denies a past medical history of anemia or requiring a blood transfusion in the past. - Imaging and Cardiology EKG: report reviewed (Sinus rhythm) CT abdomen pelvis w con INDICATION: IMPRESSION: 1. No acute findings. CT SCAN OF THE HEAD: IMPRESSION: Normal CT scan of the brain Opacified left maxillary sinus with thickened bony marcelino suggesting chronic inflammatory changes CHEST 2 VIEWS: IMPRESSION: No acute finding Plan Severe Anemia Unknown Source -Hb: 4.7g/dl -3 units transfused in the ER -Monitor labs -Heme consult -GI consult Headache -x 2 months -Accompanied c/ dizziness -CT head negative -PRN pain med -Advised to stop Excedrin Nausea/ vomiting -Anti-emetic prn -IV fluids -Supportive care Hyperkalemia -Monitor. May need kayxalate. Severe Protein Calorie Malnutrition/Weightloss- Unkown etiology [place] [employer] consult. Atypical Chest pain Could be secondary to demand -x 3 weeks - will admit to telemetry bed - monitor with serial CE and EKG - Statin - Stop ordered asa in the setting of Severe Anemia - as needed SL NTG and iv morphin for pain - Monitor BP, DVT prophylaxis -SCDs bilateral extremities -Patient ambulatory Advance Directives: No VTE prophylaxis?: Mechanical Plan of care discussed with patient/family: Yes Hospitalist Physical - Constitutional Vitals: Temp Pulse Resp BP Pulse Ox 99.3 F 88 18 129/71 100 07/08/19 06:01 07/08/19 06:01 07/08/19 06:01 07/08/19 06:01 07/08/19 06:01 Results - Labs CBC & Chem 7: 07/07/19 16:00 07/08/19 07:00 Labs: Laboratory Last Values WBC 8.5 K/mm3 (4.5-11.0) 07/07/19 16:00 RBC 1.41 M/mm3 (3.65-5.03) L 07/07/19 16:00 Hgb 4.7 gm/dl (11.8-15.2) L* 07/07/19 16:00 Hct 13.9 % (35.5-45.6) L* 07/07/19 16:00 MCV 98 fl (84-94) H 07/07/19 16:00 MCH 33 pg (28-32) H 07/07/19 16:00 MCHC 34 % (32-34) 07/07/19 16:00 RDW 34.6 % (13.2-15.2) H 07/07/19 16:00 Plt Count 131 K/mm3 (140-440) L 07/07/19 16:00 Add Manual Diff Complete 07/07/19 16:00 Total Counted 100 07/07/19 16:00 Seg Neuts % (Manual) 43.0 % (40.0-70.0) 07/07/19 16:00 Band Neutrophils % 0 % 07/07/19 16:00 Lymphocytes % (Manual) 53.0 % (13.4-35.0) H 07/07/19 16:00 Reactive Lymphs % (Man) 0 % 07/07/19 16:00 Monocytes % (Manual) 3.0 % (0.0-7.3) 07/07/19 16:00 Eosinophils % (Manual) 1.0 % (0.0-4.3) 07/07/19 16:00 Basophils % (Manual) 0 % (0.0-1.8) 07/07/19 16:00 Metamyelocytes % 0 % 07/07/19 16:00 Myelocytes % 0 % 07/07/19 16:00 Promyelocytes % 0 % 07/07/19 16:00 Blast Cells % 0 % 07/07/19 16:00 Nucleated RBC % Not Reportable 07/07/19 16:00 Seg Neutrophils # Man 3.7 K/mm3 (1.8-7.7) 07/07/19 16:00 Band Neutrophils # 0.0 K/mm3 07/07/19 16:00 Lymphocytes # (Manual) 4.5 K/mm3 (1.2-5.4) 07/07/19 16:00 Abs React Lymphs (Man) 0.0 K/mm3 07/07/19 16:00 Monocytes # (Manual) 0.3 K/mm3 (0.0-0.8) 07/07/19 16:00 Eosinophils # (Manual) 0.1 K/mm3 (0.0-0.4) 07/07/19 16:00 Basophils # (Manual) 0.0 K/mm3 (0.0-0.1) 07/07/19 16:00 Metamyelocytes # 0.0 K/mm3 07/07/19 16:00 Myelocytes # 0.0 K/mm3 07/07/19 16:00 Promyelocytes # 0.0 K/mm3 07/07/19 16:00 Blast Cells # 0.0 K/mm3 07/07/19 16:00 WBC Morphology Not Reportable 07/07/19 16:00 Hypersegmented Neuts Not Reportable 07/07/19 16:00 Hyposegmented Neuts Not Reportable 07/07/19 16:00 Hypogranular Neuts Not Reportable 07/07/19 16:00 Smudge Cells Not Reportable 07/07/19 16:00 Toxic Granulation Not Reportable 07/07/19 16:00 Toxic Vacuolation Not Reportable 07/07/19 16:00 Dohle Bodies Not Reportable 07/07/19 16:00 Pelger-Huet Anomaly Not Reportable 07/07/19 16:00 Any Rods Not Reportable 07/07/19 16:00 Platelet Estimate Not Reportable 07/07/19 16:00 Clumped Platelets Not Reportable 07/07/19 16:00 Plt Clumps, EDTA Not Reportable 07/07/19 16:00 Large Platelets Not Reportable 07/07/19 16:00 Giant Platelets Not Reportable 07/07/19 16:00 Platelet Satelliting Not Reportable 07/07/19 16:00 Plt Morphology Comment Not Reportable 07/07/19 16:00 RBC Morphology Not Reportable 07/07/19 16:00 Dimorphic RBCs Not Reportable 07/07/19 16:00 Polychromasia 1+ 07/07/19 16:00 Hypochromasia Not Reportable 07/07/19 16:00 Poikilocytosis Not Reportable 07/07/19 16:00 Anisocytosis 1+ 07/07/19 16:00 Microcytosis Not Reportable 07/07/19 16:00 Macrocytosis Not Reportable 07/07/19 16:00 Spherocytes 1+ 07/07/19 16:00 Pappenheimer Bodies Not Reportable 07/07/19 16:00 Sickle Cells Not Reportable 07/07/19 16:00 Target Cells 1+ 07/07/19 16:00 Tear Drop Cells 1+ 07/07/19 16:00 Ovalocytes Not Reportable 07/07/19 16:00 Helmet Cells Not Reportable 07/07/19 16:00 [place] Bodies Not Reportable 07/07/19 16:00 [place] Rings Not Reportable 07/07/19 16:00 [place] Cells Not Reportable 07/07/19 16:00 Bite Cells Not Reportable 07/07/19 16:00 Crenated Cell Not Reportable 07/07/19 16:00 Elliptocytes 1+ 07/07/19 16:00 Acanthocytes (Spur) Not Reportable 07/07/19 16:00 Rouleaux Not Reportable 07/07/19 16:00 Hemoglobin C Crystals Not Reportable 07/07/19 16:00 Schistocytes Not Reportable 07/07/19 16:00 Malaria parasites Not Reportable 07/07/19 16:00 Henri Bodies Not Reportable 07/07/19 16:00 Hem Pathologist Commnt No 07/07/19 16:00 PT 13.9 Sec. (12.2-14.9) 07/07/19 16:00 INR 1.06 (0.87-1.13) 07/07/19 16:00 APTT 25.9 Sec. (24.2-36.6) 07/07/19 16:00 Sodium 139 mmol/L (137-145) 07/08/19 07:00 Potassium 5.1 mmol/L (3.6-5.0) H D 07/08/19 07:00 Chloride 103.6 mmol/L (98-107) 07/08/19 07:00 Carbon Dioxide 22 mmol/L (22-30) 07/08/19 07:00 Anion Gap 19 mmol/L 07/08/19 07:00 BUN 11 mg/dL (9-20) 07/08/19 07:00 Creatinine 0.8 mg/dL (0.8-1.5) 07/08/19 07:00 Estimated GFR > 60 ml/min 07/08/19 07:00 BUN/Creatinine Ratio 14 % 07/08/19 07:00 Glucose 103 mg/dL (75-100) H 07/08/19 07:00 Calcium 9.1 mg/dL (8.4-10.2) 07/08/19 07:00 Phosphorus 4.40 mg/dL (2.5-4.5) 07/07/19 14:25 Magnesium 1.90 mg/dL (1.7-2.3) 07/07/19 16:00 Iron 151 ug/dL (49-181) 07/07/19 23:12 TIBC 128 mcg/dL (250-450) L 07/07/19 23:12 Ferritin 448.1 ng/mL (13.0-400.0) H 07/07/19 23:12 Total Bilirubin 1.30 mg/dL (0.1-1.2) H 07/07/19 14:25 AST 76 units/L (5-40) H 07/07/19 14:25 ALT 38 units/L (7-56) 07/07/19 14:25 Alkaline Phosphatase 62 units/L (35-129) 07/07/19 14:25 Troponin T < 0.010 ng/mL (0.00-0.029) 07/08/19 00:56 Total Protein 7.4 g/dL (6.3-8.2) 07/07/19 14:25 Albumin 4.4 g/dL (3.9-5) 07/07/19 14:25 Albumin/Globulin Ratio 1.5 % 07/07/19 14:25 Lipase 10 units/L (13-60) L 07/07/19 16:00 TSH 1.680 mlU/mL (0.270-4.200) 07/07/19 14:25 HIV 1&2 Antibody Rapid Non react (Non React) 07/07/19 23:12 HIV P24 Antigen Non react (Non React) 07/07/19 23:12 Blood Type O POSITIVE 07/07/19 16:00 Antibody Screen Negative 07/07/19 16:00 Crossmatch See Detail 07/07/19 16:00 Active Medications - Current Medications Current Medications: Generic Name Dose Route Start Last Admin Trade Name Freq PRN Reason Stop Dose Admin Acetaminophen 650 mg 07/07/19 21:35 Tylenol PO Q4H PRN Pain MILD(1-3)/Fever >100.5/PUENTE Aspirin 325 mg 07/08/19 10:00 Ecotrin PO QDAY MACO Atorvastatin Calcium 40 mg 07/07/19 22:00 07/08/19 01:26 Lipitor PO 40 mg QHS MACO Administration Famotidine 20 mg 07/07/19 22:00 07/08/19 01:27 Pepcid IV 20 mg BID MACO Administration Hydralazine HCl 10 mg 07/07/19 21:37 Apresoline IV Q4H PRN Hypertension Sodium Chloride 1,000 mls @ 125 mls/hr 07/08/19 04:59 07/08/19 06:00 Nacl 0.9% 1000 Ml IV 07/08/19 12:58 125 mls/hr ONCE ONE Administration Morphine Sulfate 2 mg 07/07/19 21:35 Morphine IV Q4H PRN Pain, Moderate (4-6) Ondansetron HCl 4 mg 07/07/19 21:35 Zofran IV Q8H PRN Nausea And Vomiting
--- NOTE | 2019-07-08 08:10 | Event Note ---
Date: 07/08/19 anemia wbc normal def IX sadia [id number] called pt - reg low b12 - adv to come to clinic - OTC s/l b12 d/w pt and sister
[2019-07-08] MEDS ORDERED: ASPIRIN EC 325 MG TAB PO SCH (10:00)
[2019-07-08 11:58] LABS: Anisocytosis 1+; Basophils % (Manual) 0 % (0.0-1.8); Poikilocytosis 1+; Total Cells Counted 100
[2019-07-08 11:59] LABS: Macrocytosis 1+; Ovalocytes 1+; Tear Drop Cells Few
[2019-07-08 12:00] LABS: Platelet Estimate Consistent w Auto; Target Cells Few
[2019-07-08 12:36] VITALS: BP 128/67
--- NOTE | 2019-07-08 13:18 | Gastroenterology Consultation ---
<LIANNE HYDE - Last Filed: 07/08/19 13:38> History of Present Illness - Reason for Consult Consult date: 07/08/19 anemia Requesting physician: EDWIGE FENTON - History of Present Illness Patient is a 49 y/o male with PMH of tobacco dependency who presented to ED with c/o headache, lightheadedness, weakness, and CP with symptoms exacerbated with physical activity. Upon admission, he was found to be severely anemic with H/H 4.5/13.0 to which he was admitted and GI has been consulted. This morning patient was sitting on the side of the bed w/o acute distress. Reports feeling better s/p blood transfusion with symptoms now improved. No active signs of bleeding such as hematemesis, melena, or hematochezia. Had prior N/V which has now resolved and recent wt loss. Denies abd pain, diarrhea, or constipation. Admits to NSAID use at home but no hx of PUD. No previous EGD/colonoscopy. No known Fhx of GI cancers. Abd CT w/o acute findings. Past History Past Medical History: No medical history Past Surgical History: No surgical history Social history: smoking (x 15 years) Family history: diabetes, hypertension Medications and Allergies Allergies Allergy/AdvReac Type Severity Reaction Status Date / Time No Known Allergies Allergy Unverified 08/18/15 16:13 Home Medications Medication Instructions Recorded Confirmed Last Taken Type Pantoprazole [Protonix TAB] 40 mg PO QDAY #30 tablet 07/08/19 Unknown Rx Active Meds: Active Medications Acetaminophen (Tylenol) 650 mg PO Q4H PRN PRN Reason: Pain MILD(1-3)/Fever >100.5/PUENTE Atorvastatin Calcium (Lipitor) 40 mg PO QHS [facility] Last Admin: 07/08/19 01:26 Dose: 40 mg Documented by: Famotidine (Pepcid) 20 mg IV BID [facility] Last Admin: 07/08/19 09:37 Dose: 20 mg Documented by: Hydralazine HCl (Apresoline) 10 mg IV Q4H PRN PRN Reason: Hypertension Morphine Sulfate (Morphine) 2 mg IV Q4H PRN PRN Reason: Pain, Moderate (4-6) Ondansetron HCl (Zofran) 4 mg IV Q8H PRN PRN Reason: Nausea And Vomiting Polyethylene Glycol/Electrolytes (Golytely) 4,000 ml PO ONCE ONE Stop: 07/08/19 15:01 medications reviewed/updated as required Review of Systems - Review of Systems All systems: negative Constitutional: weight loss, weakness Cardiovascular: chest pain Gastrointestinal: nausea, vomiting, no abdominal pain, no hematemesis, no melena, no hematochezia Neurological: other (headache) Exam - Constitutional Vital Signs: Temp Pulse Resp BP Pulse Ox 98.0 F 69 16 128/67 100 07/08/19 12:14 07/08/19 12:14 07/08/19 12:14 07/08/19 12:14 07/08/19 12:14 General appearance: no acute distress, other (thin appearing) - EENT Eyes: PERRL, EOM intact ENT: hearing intact - Respiratory Respiratory effort: normal Respiratory: bilateral: CTA - Cardiovascular Rhythm: regular - Gastrointestinal General gastrointestinal: Present: soft, non-tender, non-distended, normal bowel sounds - Integumentary Integumentary: Present: warm, dry - Neurologic Neurological: alert and oriented x3 - Labs CBC & Chem 7: 07/08/19 07:00 07/08/19 07:00 Lab Results: Laboratory Results - last 24 hr 07/07/19 07/07/19 07/07/19 14:25 14:25 14:25 WBC 8.9 RBC 1.34 L Hgb 4.5 L* Hct 13.0 L* MCV 97 H MCH 34 H MCHC 35 H RDW 33.9 H Plt Count 139 L Lymph % (Auto) Lymph # Add Manual Diff Complete Total Counted 100 Seg Neuts % (Manual) 55.0 Band Neutrophils % 0 Lymphocytes % (Manual) 43.0 H Reactive Lymphs % (Man) 0 Monocytes % (Manual) 1.0 Eosinophils % (Manual) 0 Basophils % (Manual) 1.0 Metamyelocytes % 0 Myelocytes % 0 Promyelocytes % 0 Blast Cells % 0 Nucleated RBC % 1.0 H Seg Neutrophils # Man 4.9 Band Neutrophils # 0.0 Lymphocytes # (Manual) 3.8 Abs React Lymphs (Man) 0.0 Monocytes # (Manual) 0.1 Eosinophils # (Manual) 0.0 Basophils # (Manual) 0.1 Metamyelocytes # 0.0 Myelocytes # 0.0 Promyelocytes # 0.0 Blast Cells # 0.0 WBC Morphology Not Reportable Hypersegmented Neuts Not Reportable Hyposegmented Neuts Not Reportable Hypogranular Neuts Not Reportable Smudge Cells Not Reportable Toxic Granulation Not Reportable Toxic Vacuolation Not Reportable Dohle Bodies Not Reportable Pelger-Huet Anomaly Not Reportable Any Rods Not Reportable Platelet Estimate Consistent w auto Clumped Platelets Not Reportable Plt Clumps, EDTA Not Reportable Large Platelets Not Reportable Giant Platelets Not Reportable Platelet Satelliting Not Reportable Plt Morphology Comment Not Reportable RBC Morphology Not Reportable Dimorphic RBCs Not Reportable Polychromasia Few Hypochromasia 1+ Poikilocytosis Not Reportable Anisocytosis Not Reportable Microcytosis Not Reportable Macrocytosis Not Reportable Spherocytes Few Pappenheimer Bodies Not Reportable Sickle Cells Not Reportable Target Cells 1+ Tear Drop Cells 1+ Ovalocytes Not Reportable Helmet Cells Not Reportable [place] Bodies Not Reportable [place] Rings Not Reportable Lillie Cells Not Reportable Bite Cells Not Reportable Crenated Cell Not Reportable Elliptocytes 1+ Acanthocytes (Spur) Not Reportable Rouleaux Not Reportable Hemoglobin C Crystals Not Reportable Schistocytes Not Reportable Malaria parasites Not Reportable Henri Bodies Not Reportable Hem Pathologist Commnt No PT 14.4 INR 1.11 APTT 22.6 L Sodium 140 Potassium 4.0 Chloride 99.9 Carbon Dioxide 25 Anion Gap 19 BUN 14 Creatinine 0.7 L Estimated GFR > 60 BUN/Creatinine Ratio 20 Glucose 110 H Calcium 9.7 Phosphorus 4.40 Magnesium 1.80 Iron TIBC Ferritin Total Bilirubin 1.30 H AST 76 H ALT 38 Alkaline Phosphatase 62 Troponin T < 0.010 Total Protein 7.4 Albumin 4.4 Albumin/Globulin Ratio 1.5 Lipase Vitamin B12 Folate TSH HIV 1&2 Antibody Rapid HIV P24 Antigen Blood Type Antibody Screen Direct Antiglob Test MIRIAM, Poly Interpret Crossmatch 07/07/19 07/07/19 07/07/19 14:25 16:00 16:00 WBC 8.5 RBC 1.41 L Hgb 4.7 L* Hct 13.9 L* MCV 98 H MCH 33 H MCHC 34 RDW 34.6 H Plt Count 131 L Lymph % (Auto) Lymph # Add Manual Diff Complete Total Counted 100 Seg Neuts % (Manual) 43.0 Band Neutrophils % 0 Lymphocytes % (Manual) 53.0 H Reactive Lymphs % (Man) 0 Monocytes % (Manual) 3.0 Eosinophils % (Manual) 1.0 Basophils % (Manual) 0 Metamyelocytes % 0 Myelocytes % 0 Promyelocytes % 0 Blast Cells % 0 Nucleated RBC % Not Reportable Seg Neutrophils # Man 3.7 Band Neutrophils # 0.0 Lymphocytes # (Manual) 4.5 Abs React Lymphs (Man) 0.0 Monocytes # (Manual) 0.3 Eosinophils # (Manual) 0.1 Basophils # (Manual) 0.0 Metamyelocytes # 0.0 Myelocytes # 0.0 Promyelocytes # 0.0 Blast Cells # 0.0 WBC Morphology Not Reportable Hypersegmented Neuts Not Reportable Hyposegmented Neuts Not Reportable Hypogranular Neuts Not Reportable Smudge Cells Not Reportable Toxic Granulation Not Reportable Toxic Vacuolation Not Reportable Dohle Bodies Not Reportable Pelger-Huet Anomaly Not Reportable Any Rods Not Reportable Platelet Estimate Not Reportable Clumped Platelets Not Reportable Plt Clumps, EDTA Not Reportable Large Platelets Not Reportable Giant Platelets Not Reportable Platelet Satelliting Not Reportable Plt Morphology Comment Not Reportable RBC Morphology Not Reportable Dimorphic RBCs Not Reportable Polychromasia 1+ Hypochromasia Not Reportable Poikilocytosis Not Reportable Anisocytosis 1+ Microcytosis Not Reportable Macrocytosis Not Reportable Spherocytes 1+ Pappenheimer Bodies Not Reportable Sickle Cells Not Reportable Target Cells 1+ Tear Drop Cells 1+ Ovalocytes Not Reportable Helmet Cells Not Reportable [place] Bodies Not Reportable [place] Rings Not Reportable [place] Cells Not Reportable Bite Cells Not Reportable Crenated Cell Not Reportable Elliptocytes 1+ Acanthocytes (Spur) Not Reportable Rouleaux Not Reportable Hemoglobin C Crystals Not Reportable Schistocytes Not Reportable Malaria parasites Not Reportable Henri Bodies Not Reportable Hem Pathologist Commnt No PT INR APTT Sodium Potassium Chloride Carbon Dioxide Anion Gap BUN Creatinine Estimated GFR BUN/Creatinine Ratio Glucose Calcium Phosphorus Magnesium Iron TIBC Ferritin Total Bilirubin AST ALT Alkaline Phosphatase Troponin T < 0.010 Total Protein Albumin Albumin/Globulin Ratio Lipase Vitamin B12 Folate TSH 1.680 HIV 1&2 Antibody Rapid HIV P24 Antigen Blood Type Antibody Screen Direct Antiglob Test MIRIAM, Poly Interpret Crossmatch 07/07/19 07/07/19 07/07/19 16:00 16:00 16:00 WBC RBC Hgb Hct MCV MCH MCHC RDW Plt Count Lymph % (Auto) Lymph # Add Manual Diff Total Counted Seg Neuts % (Manual) Band Neutrophils % Lymphocytes % (Manual) Reactive Lymphs % (Man) Monocytes % (Manual) Eosinophils % (Manual) Basophils % (Manual) Metamyelocytes % Myelocytes % Promyelocytes % Blast Cells % Nucleated RBC % Seg Neutrophils # Man Band Neutrophils # Lymphocytes # (Manual) Abs React Lymphs (Man) Monocytes # (Manual) Eosinophils # (Manual) Basophils # (Manual) Metamyelocytes # Myelocytes # Promyelocytes # Blast Cells # WBC Morphology Hypersegmented Neuts Hyposegmented Neuts Hypogranular Neuts Smudge Cells Toxic Granulation Toxic Vacuolation Dohle Bodies Pelger-Huet Anomaly Any Rods Platelet Estimate Clumped Platelets Plt Clumps, EDTA Large Platelets Giant Platelets Platelet Satelliting Plt Morphology Comment RBC Morphology Dimorphic RBCs Polychromasia Hypochromasia Poikilocytosis Anisocytosis Microcytosis Macrocytosis Spherocytes Pappenheimer Bodies Sickle Cells Target Cells Tear Drop Cells Ovalocytes Helmet Cells [place] Bodies [place] Rings Lillie Cells Bite Cells Crenated Cell Elliptocytes Acanthocytes (Spur) Rouleaux Hemoglobin C Crystals Schistocytes Malaria parasites Henri Bodies Hem Pathologist Commnt PT 13.9 INR 1.06 APTT 25.9 Sodium Potassium Chloride Carbon Dioxide Anion Gap BUN Creatinine Estimated GFR BUN/Creatinine Ratio Glucose Calcium Phosphorus Magnesium 1.90 Iron TIBC Ferritin Total Bilirubin AST ALT Alkaline Phosphatase Troponin T Total Protein Albumin Albumin/Globulin Ratio Lipase 10 L Vitamin B12 Folate TSH HIV 1&2 Antibody Rapid HIV P24 Antigen Blood Type O POSITIVE Antibody Screen Negative Direct Antiglob Test MIRIAM, Poly Interpret Crossmatch See Detail 07/07/19 07/07/19 07/07/19 23:12 23:12 23:12 WBC RBC Hgb Hct MCV MCH MCHC RDW Plt Count Lymph % (Auto) Lymph # Add Manual Diff Total Counted Seg Neuts % (Manual) Band Neutrophils % Lymphocytes % (Manual) Reactive Lymphs % (Man) Monocytes % (Manual) Eosinophils % (Manual) Basophils % (Manual) Metamyelocytes % Myelocytes % Promyelocytes % Blast Cells % Nucleated RBC % Seg Neutrophils # Man Band Neutrophils # Lymphocytes # (Manual) Abs React Lymphs (Man) Monocytes # (Manual) Eosinophils # (Manual) Basophils # (Manual) Metamyelocytes # Myelocytes # Promyelocytes # Blast Cells # WBC Morphology Hypersegmented Neuts Hyposegmented Neuts Hypogranular Neuts Smudge Cells Toxic Granulation Toxic Vacuolation Dohle Bodies Pelger-Huet Anomaly Any Rods Platelet Estimate Clumped Platelets Plt Clumps, EDTA Large Platelets Giant Platelets Platelet Satelliting Plt Morphology Comment RBC Morphology Dimorphic RBCs Polychromasia Hypochromasia Poikilocytosis Anisocytosis Microcytosis Macrocytosis Spherocytes Pappenheimer Bodies Sickle Cells Target Cells Tear Drop Cells Ovalocytes Helmet Cells [place] Bodies [place] Rings Lillie Cells Bite Cells Crenated Cell Elliptocytes Acanthocytes (Spur) Rouleaux Hemoglobin C Crystals Schistocytes Malaria parasites Henri Bodies Hem Pathologist Commnt PT INR APTT Sodium Potassium Chloride Carbon Dioxide Anion Gap BUN Creatinine Estimated GFR BUN/Creatinine Ratio Glucose Calcium Phosphorus Magnesium Iron 151 TIBC 128 L Ferritin 448.1 H Total Bilirubin AST ALT Alkaline Phosphatase Troponin T Total Protein Albumin Albumin/Globulin Ratio Lipase Vitamin B12 Folate TSH HIV 1&2 Antibody Rapid Non react HIV P24 Antigen Non react Blood Type Antibody Screen Direct Antiglob Test MIRIAM, Poly Interpret Crossmatch 07/08/19 07/08/19 07/08/19 00:56 07:00 07:00 WBC 8.1 RBC 2.30 L Hgb 7.8 L D Hct 22.2 L D MCV 96 H MCH 34 H MCHC 35 H RDW 17.6 H Plt Count 104 L Lymph % (Auto) Sorter Laundry Articles Lymph # Sorter Laundry Articles Add Manual Diff Complete Total Counted 100 Seg Neuts % (Manual) 36.0 L Band Neutrophils % 0 Lymphocytes % (Manual) 61.0 H Reactive Lymphs % (Man) 0 Monocytes % (Manual) 1.0 Eosinophils % (Manual) 1.0 Basophils % (Manual) 0 Metamyelocytes % 1.0 Myelocytes % 0 Promyelocytes % 0 Blast Cells % 0 Nucleated RBC % 1.0 H Seg Neutrophils # Man 2.9 Band Neutrophils # 0.0 Lymphocytes # (Manual) 4.9 Abs React Lymphs (Man) 0.0 Monocytes # (Manual) 0.1 Eosinophils # (Manual) 0.1 Basophils # (Manual) 0.0 Metamyelocytes # 0.1 Myelocytes # 0.0 Promyelocytes # 0.0 Blast Cells # 0.0 WBC Morphology Not Reportable Hypersegmented Neuts Not Reportable Hyposegmented Neuts Not Reportable Hypogranular Neuts Not Reportable Smudge Cells Not Reportable Toxic Granulation Not Reportable Toxic Vacuolation Not Reportable Dohle Bodies Not Reportable Pelger-Huet Anomaly Not Reportable Any Rods Not Reportable Platelet Estimate Consistent w auto Clumped Platelets Not Reportable Plt Clumps, EDTA Not Reportable Large Platelets Not Reportable Giant Platelets Not Reportable Platelet Satelliting Not Reportable Plt Morphology Comment Not Reportable RBC Morphology Not Reportable Dimorphic RBCs Not Reportable Polychromasia Few Hypochromasia Not Reportable Poikilocytosis 1+ Anisocytosis 1+ Microcytosis Not Reportable Macrocytosis 1+ Spherocytes Not Reportable Pappenheimer Bodies Not Reportable Sickle Cells Not Reportable Target Cells Few Tear Drop Cells Few Ovalocytes 1+ Helmet Cells Not Reportable [place] Bodies Not Reportable [place] Rings Not Reportable [place] Cells Not Reportable Bite Cells Not Reportable Crenated Cell Not Reportable Elliptocytes Not Reportable Acanthocytes (Spur) Not Reportable Rouleaux Not Reportable Hemoglobin C Crystals Not Reportable Schistocytes Not Reportable Malaria parasites Not Reportable Henri Bodies Not Reportable Hem Pathologist Commnt No PT INR APTT Sodium 139 Potassium 5.1 H D Chloride 103.6 Carbon Dioxide 22 Anion Gap 19 BUN 11 Creatinine 0.8 Estimated GFR > 60 BUN/Creatinine Ratio 14 Glucose 103 H Calcium 9.1 Phosphorus Magnesium Iron TIBC Ferritin Total Bilirubin AST ALT Alkaline Phosphatase Troponin T < 0.010 Total Protein Albumin Albumin/Globulin Ratio Lipase Vitamin B12 Folate TSH HIV 1&2 Antibody Rapid HIV P24 Antigen Blood Type Antibody Screen Direct Antiglob Test MIRIAM, Poly Interpret Crossmatch 07/08/19 07/08/19 07/08/19 07:28 07:28 09:15 WBC RBC Hgb Hct MCV MCH MCHC RDW Plt Count Lymph % (Auto) Lymph # Add Manual Diff Total Counted Seg Neuts % (Manual) Band Neutrophils % Lymphocytes % (Manual) Reactive Lymphs % (Man) Monocytes % (Manual) Eosinophils % (Manual) Basophils % (Manual) Metamyelocytes % Myelocytes % Promyelocytes % Blast Cells % Nucleated RBC % Seg Neutrophils # Man Band Neutrophils # Lymphocytes # (Manual) Abs React Lymphs (Man) Monocytes # (Manual) Eosinophils # (Manual) Basophils # (Manual) Metamyelocytes # Myelocytes # Promyelocytes # Blast Cells # WBC Morphology Hypersegmented Neuts Hyposegmented Neuts Hypogranular Neuts Smudge Cells Toxic Granulation Toxic Vacuolation Dohle Bodies Pelger-Huet Anomaly Any Rods Platelet Estimate Clumped Platelets Plt Clumps, EDTA Large Platelets Giant Platelets Platelet Satelliting Plt Morphology Comment RBC Morphology Dimorphic RBCs Polychromasia Hypochromasia Poikilocytosis Anisocytosis Microcytosis Macrocytosis Spherocytes Pappenheimer Bodies Sickle Cells Target Cells Tear Drop Cells Ovalocytes Helmet Cells [place] Bodies [place] Rings Lillie Cells Bite Cells Crenated Cell Elliptocytes Acanthocytes (Spur) Rouleaux Hemoglobin C Crystals Schistocytes Malaria parasites Henri Bodies Hem Pathologist Commnt PT INR APTT Sodium Potassium Chloride Carbon Dioxide Anion Gap BUN Creatinine Estimated GFR BUN/Creatinine Ratio Glucose Calcium Phosphorus Magnesium Iron TIBC Ferritin Total Bilirubin AST ALT Alkaline Phosphatase Troponin T Total Protein Albumin Albumin/Globulin Ratio Lipase Vitamin B12 150.0 L Folate 5.89 L TSH HIV 1&2 Antibody Rapid HIV P24 Antigen Blood Type Antibody Screen Direct Antiglob Test Negative MIRIAM, Poly Interpret Negative Crossmatch Assessment and Plan 1.anemia -H/H 7.8/22.2 s/p blood transfusion (4.5/13.0 on admission); continue to monitor H/H and transfuse as needed -MCV elevated, plt low (104), INR WNL -iron WNL (151), TIBC 128, ferritin 448 -B12 150 and folate 5.89 -stool occult negative -abd CT w/o acute findings -etiology unclear- hemolytic process vs other -clinically, patient is stable with no active signs of bleeding. Denies current abd pain or N/V. -hematology following -will schedule for EGD/colonoscopy tomorrow for further evaluation (r/o GI pathology/malignancy) -okay for clear liquids today, then NPO after MN -avoid NSAIDs -daily PPI -continue supportive care -will follow <DANNA DURAN - Last Filed: 07/08/19 16:37> Medications and Allergies Active Meds: Active Medications Acetaminophen (Tylenol) 650 mg PO Q4H PRN PRN Reason: Pain MILD(1-3)/Fever >100.5/PUENTE Atorvastatin Calcium (Lipitor) 40 mg PO QHS [facility] Last Admin: 07/08/19 01:26 Dose: 40 mg Documented by: Famotidine (Pepcid) 20 mg IV BID [facility] Last Admin: 07/08/19 09:37 Dose: 20 mg Documented by: Hydralazine HCl (Apresoline) 10 mg IV Q4H PRN PRN Reason: Hypertension Morphine Sulfate (Morphine) 2 mg IV Q4H PRN PRN Reason: Pain, Moderate (4-6) Ondansetron HCl (Zofran) 4 mg IV Q8H PRN PRN Reason: Nausea And Vomiting Exam - Constitutional Vital Signs: Temp Pulse Resp BP Pulse Ox 98.0 F 69 16 128/67 100 07/08/19 12:14 07/08/19 12:14 07/08/19 12:14 07/08/19 12:14 07/08/19 12:14 - Labs CBC & Chem 7: 07/08/19 07:00 07/08/19 07:00 Lab Results: Laboratory Results - last 24 hr 07/07/19 07/07/19 07/07/19 16:00 16:00 16:00 WBC 8.5 RBC 1.41 L Hgb 4.7 L* Hct 13.9 L* MCV 98 H MCH 33 H MCHC 34 RDW 34.6 H Plt Count 131 L Lymph % (Auto) Lymph # Add Manual Diff Complete Total Counted 100 Seg Neuts % (Manual) 43.0 Band Neutrophils % 0 Lymphocytes % (Manual) 53.0 H Reactive Lymphs % (Man) 0 Monocytes % (Manual) 3.0 Eosinophils % (Manual) 1.0 Basophils % (Manual) 0 Metamyelocytes % 0 Myelocytes % 0 Promyelocytes % 0 Blast Cells % 0 Nucleated RBC % Not Reportable Seg Neutrophils # Man 3.7 Band Neutrophils # 0.0 Lymphocytes # (Manual) 4.5 Abs React Lymphs (Man) 0.0 Monocytes # (Manual) 0.3 Eosinophils # (Manual) 0.1 Basophils # (Manual) 0.0 Metamyelocytes # 0.0 Myelocytes # 0.0 Promyelocytes # 0.0 Blast Cells # 0.0 WBC Morphology Not Reportable Hypersegmented Neuts Not Reportable Hyposegmented Neuts Not Reportable Hypogranular Neuts Not Reportable Smudge Cells Not Reportable Toxic Granulation Not Reportable Toxic Vacuolation Not Reportable Dohle Bodies Not Reportable Pelger-Huet Anomaly Not Reportable Any Rods Not Reportable Platelet Estimate Not Reportable Clumped Platelets Not Reportable Plt Clumps, EDTA Not Reportable Large Platelets Not Reportable Giant Platelets Not Reportable Platelet Satelliting Not Reportable Plt Morphology Comment Not Reportable RBC Morphology Not Reportable Dimorphic RBCs Not Reportable Polychromasia 1+ Hypochromasia Not Reportable Poikilocytosis Not Reportable Anisocytosis 1+ Microcytosis Not Reportable Macrocytosis Not Reportable Spherocytes 1+ Pappenheimer Bodies Not Reportable Sickle Cells Not Reportable Target Cells 1+ Tear Drop Cells 1+ Ovalocytes Not Reportable Helmet Cells Not Reportable [place] Bodies Not Reportable [place] Rings Not Reportable [place] Cells Not Reportable Bite Cells Not Reportable Crenated Cell Not Reportable Elliptocytes 1+ Acanthocytes (Spur) Not Reportable Rouleaux Not Reportable Hemoglobin C Crystals Not Reportable Schistocytes Not Reportable Malaria parasites Not Reportable Henri Bodies Not Reportable Hem Pathologist Commnt No PT INR APTT Sodium Potassium Chloride Carbon Dioxide Anion Gap BUN Creatinine Estimated GFR BUN/Creatinine Ratio Glucose Calcium Magnesium 1.90 Iron TIBC Ferritin Troponin T < 0.010 Lipase 10 L Vitamin B12 Folate HIV 1&2 Antibody Rapid HIV P24 Antigen Blood Type Antibody Screen Direct Antiglob Test MIRIAM, Poly Interpret Crossmatch 07/07/19 07/07/19 07/07/19 16:00 16:00 23:12 WBC RBC Hgb Hct MCV MCH MCHC RDW Plt Count Lymph % (Auto) Lymph # Add Manual Diff Total Counted Seg Neuts % (Manual) Band Neutrophils % Lymphocytes % (Manual) Reactive Lymphs % (Man) Monocytes % (Manual) Eosinophils % (Manual) Basophils % (Manual) Metamyelocytes % Myelocytes % Promyelocytes % Blast Cells % Nucleated RBC % Seg Neutrophils # Man Band Neutrophils # Lymphocytes # (Manual) Abs React Lymphs (Man) Monocytes # (Manual) Eosinophils # (Manual) Basophils # (Manual) Metamyelocytes # Myelocytes # Promyelocytes # Blast Cells # WBC Morphology Hypersegmented Neuts Hyposegmented Neuts Hypogranular Neuts Smudge Cells Toxic Granulation Toxic Vacuolation Dohle Bodies Pelger-Huet Anomaly Any Rods Platelet Estimate Clumped Platelets Plt Clumps, EDTA Large Platelets Giant Platelets Platelet Satelliting Plt Morphology Comment RBC Morphology Dimorphic RBCs Polychromasia Hypochromasia Poikilocytosis Anisocytosis Microcytosis Macrocytosis Spherocytes Pappenheimer Bodies Sickle Cells Target Cells Tear Drop Cells Ovalocytes Helmet Cells [place] Bodies [place] Rings Lillie Cells Bite Cells Crenated Cell Elliptocytes Acanthocytes (Spur) Rouleaux Hemoglobin C Crystals Schistocytes Malaria parasites Henri Bodies Hem Pathologist Commnt PT 13.9 INR 1.06 APTT 25.9 Sodium Potassium Chloride Carbon Dioxide Anion Gap BUN Creatinine Estimated GFR BUN/Creatinine Ratio Glucose Calcium Magnesium Iron 151 TIBC 128 L Ferritin Troponin T Lipase Vitamin B12 Folate HIV 1&2 Antibody Rapid HIV P24 Antigen Blood Type O POSITIVE Antibody Screen Negative Direct Antiglob Test MIRIAM, Poly Interpret Crossmatch See Detail 07/07/19 07/07/19 07/08/19 23:12 23:12 00:56 WBC RBC Hgb Hct MCV MCH MCHC RDW Plt Count Lymph % (Auto) Lymph # Add Manual Diff Total Counted Seg Neuts % (Manual) Band Neutrophils % Lymphocytes % (Manual) Reactive Lymphs % (Man) Monocytes % (Manual) Eosinophils % (Manual) Basophils % (Manual) Metamyelocytes % Myelocytes % Promyelocytes % Blast Cells % Nucleated RBC % Seg Neutrophils # Man Band Neutrophils # Lymphocytes # (Manual) Abs React Lymphs (Man) Monocytes # (Manual) Eosinophils # (Manual) Basophils # (Manual) Metamyelocytes # Myelocytes # Promyelocytes # Blast Cells # WBC Morphology Hypersegmented Neuts Hyposegmented Neuts Hypogranular Neuts Smudge Cells Toxic Granulation Toxic Vacuolation Dohle Bodies Pelger-Huet Anomaly Any Rods Platelet Estimate Clumped Platelets Plt Clumps, EDTA Large Platelets Giant Platelets Platelet Satelliting Plt Morphology Comment RBC Morphology Dimorphic RBCs Polychromasia Hypochromasia Poikilocytosis Anisocytosis Microcytosis Macrocytosis Spherocytes Pappenheimer Bodies Sickle Cells Target Cells Tear Drop Cells Ovalocytes Helmet Cells [place] Bodies [place] Rings [place] Cells Bite Cells Crenated Cell Elliptocytes Acanthocytes (Spur) Rouleaux Hemoglobin C Crystals Schistocytes Malaria parasites Henri Bodies Hem Pathologist Commnt PT INR APTT Sodium Potassium Chloride Carbon Dioxide Anion Gap BUN Creatinine Estimated GFR BUN/Creatinine Ratio Glucose Calcium Magnesium Iron TIBC Ferritin 448.1 H Troponin T < 0.010 Lipase Vitamin B12 Folate HIV 1&2 Antibody Rapid Non react HIV P24 Antigen Non react Blood Type Antibody Screen Direct Antiglob Test MIRIAM, Poly Interpret Crossmatch 07/08/19 07/08/19 07/08/19 07:00 07:00 07:28 WBC 8.1 RBC 2.30 L Hgb 7.8 L D Hct 22.2 L D MCV 96 H MCH 34 H MCHC 35 H RDW 17.6 H Plt Count 104 L Lymph % (Auto) Sorter Laundry Articles Lymph # Sorter Laundry Articles Add Manual Diff Complete Total Counted 100 Seg Neuts % (Manual) 36.0 L Band Neutrophils % 0 Lymphocytes % (Manual) 61.0 H Reactive Lymphs % (Man) 0 Monocytes % (Manual) 1.0 Eosinophils % (Manual) 1.0 Basophils % (Manual) 0 Metamyelocytes % 1.0 Myelocytes % 0 Promyelocytes % 0 Blast Cells % 0 Nucleated RBC % 1.0 H Seg Neutrophils # Man 2.9 Band Neutrophils # 0.0 Lymphocytes # (Manual) 4.9 Abs React Lymphs (Man) 0.0 Monocytes # (Manual) 0.1 Eosinophils # (Manual) 0.1 Basophils # (Manual) 0.0 Metamyelocytes # 0.1 Myelocytes # 0.0 Promyelocytes # 0.0 Blast Cells # 0.0 WBC Morphology Not Reportable Hypersegmented Neuts Not Reportable Hyposegmented Neuts Not Reportable Hypogranular Neuts Not Reportable Smudge Cells Not Reportable Toxic Granulation Not Reportable Toxic Vacuolation Not Reportable Dohle Bodies Not Reportable Pelger-Huet Anomaly Not Reportable Any Rods Not Reportable Platelet Estimate Consistent w auto Clumped Platelets Not Reportable Plt Clumps, EDTA Not Reportable Large Platelets Not Reportable Giant Platelets Not Reportable Platelet Satelliting Not Reportable Plt Morphology Comment Not Reportable RBC Morphology Not Reportable Dimorphic RBCs Not Reportable Polychromasia Few Hypochromasia Not Reportable Poikilocytosis 1+ Anisocytosis 1+ Microcytosis Not Reportable Macrocytosis 1+ Spherocytes Not Reportable Pappenheimer Bodies Not Reportable Sickle Cells Not Reportable Target Cells Few Tear Drop Cells Few Ovalocytes 1+ Helmet Cells Not Reportable Melton-[place] Bodies Not Reportable [place] Rings Not Reportable [place] Cells Not Reportable Bite Cells Not Reportable Crenated Cell Not Reportable Elliptocytes Not Reportable Acanthocytes (Spur) Not Reportable Rouleaux Not Reportable Hemoglobin C Crystals Not Reportable Schistocytes Not Reportable Malaria parasites Not Reportable Henri Bodies Not Reportable Hem Pathologist Commnt No PT INR APTT Sodium 139 Potassium 5.1 H D Chloride 103.6 Carbon Dioxide 22 Anion Gap 19 BUN 11 Creatinine 0.8 Estimated GFR > 60 BUN/Creatinine Ratio 14 Glucose 103 H Calcium 9.1 Magnesium Iron TIBC Ferritin Troponin T Lipase Vitamin B12 150.0 L Folate HIV 1&2 Antibody Rapid HIV P24 Antigen Blood Type Antibody Screen Direct Antiglob Test MIRIAM, Poly Interpret Crossmatch 07/08/19 07/08/19 07:28 09:15 WBC RBC Hgb Hct MCV MCH MCHC RDW Plt Count Lymph % (Auto) Lymph # Add Manual Diff Total Counted Seg Neuts % (Manual) Band Neutrophils % Lymphocytes % (Manual) Reactive Lymphs % (Man) Monocytes % (Manual) Eosinophils % (Manual) Basophils % (Manual) Metamyelocytes % Myelocytes % Promyelocytes % Blast Cells % Nucleated RBC % Seg Neutrophils # Man Band Neutrophils # Lymphocytes # (Manual) Abs React Lymphs (Man) Monocytes # (Manual) Eosinophils # (Manual) Basophils # (Manual) Metamyelocytes # Myelocytes # Promyelocytes # Blast Cells # WBC Morphology Hypersegmented Neuts Hyposegmented Neuts Hypogranular Neuts Smudge Cells Toxic Granulation Toxic Vacuolation Dohle Bodies Pelger-Huet Anomaly Any Rods Platelet Estimate Clumped Platelets Plt Clumps, EDTA Large Platelets Giant Platelets Platelet Satelliting Plt Morphology Comment RBC Morphology Dimorphic RBCs Polychromasia Hypochromasia Poikilocytosis Anisocytosis Microcytosis Macrocytosis Spherocytes Pappenheimer Bodies Sickle Cells Target Cells Tear Drop Cells Ovalocytes Helmet Cells Melton-[place] Bodies [place] Rings Lillie Cells Bite Cells Crenated Cell Elliptocytes Acanthocytes (Spur) Rouleaux Hemoglobin C Crystals Schistocytes Malaria parasites Henri Bodies Hem Pathologist Commnt PT INR APTT Sodium Potassium Chloride Carbon Dioxide Anion Gap BUN Creatinine Estimated GFR BUN/Creatinine Ratio Glucose Calcium Magnesium Iron TIBC Ferritin Troponin T Lipase Vitamin B12 Folate 5.89 L HIV 1&2 Antibody Rapid HIV P24 Antigen Blood Type Antibody Screen Direct Antiglob Test Negative MIRIAM, Poly Interpret Negative Crossmatch Assessment and Plan Patient seen and examined; agree with note above. presenting with severe anemia, denies overt gi bleeding or significant gi complaints. will plan egd/colonoscopy tomorrow to r/o possible gi source of anemia.
[2019-07-08] MEDS ORDERED: POLYETHYLENE GLYCOL/ELECT SOLN 4000 ML PO ONE (15:00)
--- NOTE | 2019-07-08 15:04 | Discharge Summary ---
Providers - Providers Date of Admission: 07/08/19 10:00 Attending physician: EDWIGE FENTON MD 07/07/19 22:21 Consult to Physician [CONS] Routine Comment: Consulting Provider: LOVE GRECO Physician Instructions: Reason For Exam: anemia 07/08/19 07:57 Consult to Physician [CONS] Routine Comment: Consulting Provider: DANNA DURAN Physician Instructions: Reason For Exam: SEVERE ANEMIA, Primary care physician: COMPUTER FORENSIC SPECIALIST Hospitalization Reason for admission: GI bleed Condition: Stable Hospital course: Patient is a 49 y/o male with PMH of tobacco dependency who presented to ED with c/o headache, lightheadedness, weakness, and CP with symptoms exacerbated with physical activity. Upon admission, he was found to be severely anemic with H/H 4.5/13.0 to which he was admitted and GI has been consulted. This morning patient was sitting on the side of the bed w/o acute distress. Reports feeling better s/p blood transfusion with symptoms now improved. No active signs of bleeding such as hematemesis, melena, or hematochezia. Had prior N/V which has now resolved and recent wt loss. Denies abd pain, diarrhea, or constipation. Admits to NSAID use at home but no hx of PUD. No previous EGD/colonoscopy. No known Fhx of GI cancers. Abd CT w/o acute findings. * Patient received 2 unit packed red blood cells with improvement in hemoglobin. I did advise the patient that is beneficial to have a GI evaluation the patient declined and states that he has child support to pay and has to leave. * Advised patient to avoid NSAIDs use at this time. * Placed patient on PPI * We recommend outpatient PPI continuation and also to follow-up with GI hematology. * Further chest pain at this time patient tolerating diet Severe Anemia Unknown Source -Hb: 4.7g/dl -3 units transfused in the ER -Monitor labs -Heme consult -GI consult Headache -x 2 months -Accompanied c/ dizziness -CT head negative -PRN pain med -Advised to stop Excedrin Nausea/ vomiting -Anti-emetic prn Hyperkalemia -Monitor. May need kayxalate. Severe Protein Calorie Malnutrition/Weightloss- Unkown etiology Manufacturers Service Representative consult. Atypical Chest pain Could be secondary to demand and costochondritis -x 3 weeks Disposition: [id number] TO HOME OR SELFCARE Time spent for discharge: 35 minutes Core Measure Documentation - Palliative Care Palliative Care/ Comfort Measures: Not Applicable - Core Measures Any of the following diagnoses?: none Exam - Physical Exam Narrative exam: VITAL SIGNS: Reviewed. GENERAL: The patient appears normally developed, cachectic appearing. Vital signs as documented. HEAD: No signs of head trauma. EYES: Pupils are equal. Extraocular motions intact. EARS: Hearing grossly intact. MOUTH: Oropharynx is normal. NECK: No adenopathy, no JVD. CHEST: Chest with clear breath sounds bilaterally. No wheezes, rales, or rhonchi. CARDIAC: Regular rate and rhythm. S1 and S2, without murmurs, gallops, or rubs. VASCULAR: No Edema. Peripheral pulses normal and equal in all extremities. ABDOMEN: Soft, non tender and non distended. No rebound or guarding, and no masses palpated. Bowel Sounds normal. MUSCULOSKELETAL: Good range of motion of all major joints. Extremities without clubbing, cyanosis or edema. NEUROLOGIC EXAM: Alert and oriented x 3 No focal sensory or strength deficits. Speech normal. Follows commands. PSYCHIATRIC: Mood normal. SKIN: detial exam as documented in skin assessment - Constitutional Vitals: Temp Pulse Resp BP Pulse Ox 98.0 F 69 16 128/67 100 07/08/19 12:14 07/08/19 12:14 07/08/19 12:14 07/08/19 12:14 07/08/19 12:14 Plan Activity: advance as tolerated, fall precautions Diet: low fat Special Instructions: record daily weights, record daily BP diary Additional Instructions: Must avoid NSAIDs Follow up with: PRIMARY MD SIERRA [Primary Care Provider] - 3-5 Days DANNA DURAN MD [Staff Physician] - 7 Days LOVE GRECO MD [Staff Physician] - 7 Days Prescriptions: Pantoprazole [Protonix TAB] 40 mg PO QDAY #30 tablet
--- NOTE | 2019-07-09 07:44 | Consultation ---
REFERRED BY: ____ HISTORY OF PRESENT ILLNESS: I saw the patient, a 49-year-old male in the medical floor. The patient came to the hospital because of headache, chest pain for a few weeks. He also had nausea and vomiting. He had a history of chest pain. During this admission, he was found to be very anemic. He was given transfusion. He also was found to have low platelet count. I have been asked to evaluate the patient for this. At this time, he is feeling better post transfusion. The patient is from [facility]. No hematemesis, no hematochezia. No other bleeding issues. PAST SURGICAL HISTORY: Nil significant. PAST SURGICAL HISTORY: Nil. SOCIAL HISTORY: Smoking present. FAMILY HISTORY: Diabetes and hypertension. ALLERGIES: None. MEDICATIONS: No home medications. PHYSICAL EXAMINATION: VITAL SIGNS: Temperature 98, pulse 69, respirations 16, and BP 128/67. HEENT: Pallor present, no icterus. NECK: No neck lymph nodes. HEART: S1, S2. LUNGS: Clear to auscultation. ABDOMEN: Soft. EXTREMITIES: No calf tenderness. LABORATORY DATA: White cell 8.9, hemoglobin 4.5 and posttransfusion 7.8, MCV 97, platelet 139, potassium 5.1, creatinine 0.8, and calcium 9.1. Serum iron 151, ferritin 448. B12 150, folate 5.89. HIV negative. ASSESSMENT AND PLAN: 1. Anemia, thrombocytopenia. MCV is high. B12 is low. Folate is low risk. I called the patient as he was already discharged regarding the need to make an appointment to take supplement. I explained to him regarding [id number] sublingual B12 and folic acid. 2. History of chest pain, headache. This may be secondary to anemia. 3. He had hyperkalemia at one time. 4. I will follow the patient in the clinic setting. JOB# [id number] NM/NTS
== END 2019-07-08 21:05 | disposition home or self-care (01) | DRG 205 ==
LOC: ED 11:19 → 3A 20:02 → OBSVTOIN 07-08 10:00
PROVIDERS: ADMIT Internal Medicine; ATTEND Internal Medicine
PROC: 30233N1 Transfusion of Nonautologous Red Blood Cells into Peripheral Vein, Percutaneous Approach (ICD-10-PCS; principal; 2019-07-07)
DX: M94.0 Chondrocostal junction syndrome [Tietze] (principal); E43 Unspecified severe protein-calorie malnutrition; Z68.1 Body mass index [BMI] 19.9 or less, adult; F17.210 Nicotine dependence, cigarettes, uncomplicated; D64.9 Anemia, unspecified; E87.5 Hyperkalemia; Z83.3 Family history of diabetes mellitus; Z82.49 Family history of ischemic heart disease and other diseases of the circulatory system; Z71.3 Dietary counseling and surveillance
CPT/HCPCS: 36415; 70450; 71046; 74177; 80048; 80053; 82271; 82607; 82728; 82747; 83550; 83690; 83735; 84100; 84443; 84484; 85007; 85025; 85610; 85730; 86850; 86880; 86900; 86901; 86920; 87806; 93005; 93010; 99406; G0378; A9270-GY; J2405; J7030; J7040; P9016; Q9967